=== PATIENT | female | born 2000 ===

== ENCOUNTER 2024-06-10 23:10 | Emergency (ER) | payer SELFPAY ==
[2024-06-10 23:34] VITALS: BP 123/85; PULSE 106; RESP 20; TEMP 36.6; O2SAT 98
--- NOTE | 2024-06-11 00:59 | PC.NURSE ---
Pt brought to intake desk and states she is feeling better and is going to go home and rest, decided she does not want to be seen. Pt pushed out by w/c by female, NAD noted. Pt is A&Ox4.
== END 2024-06-11 00:59 | disposition left against medical advice (07) ==
LOC: ANHED 06-11 01:05
DX: F10.129 Alcohol abuse with intoxication, unspecified (principal)
CPT/HCPCS: 99199